=== PATIENT | male | born 1950 | race Caucasian/White ===

== ENCOUNTER 2021-03-09 01:33 | Emergency (ER) | payer OTHER ==
[~2021-03-09] VITALS: Ht 180.3 cm; Wt 90.9 kg
[2021-03-09 02:30] LABS: HEMATOCRIT 41.5 % (39.0-50.0); HEMOGLOBIN 13.9 g/dl (14.0-18.0); IMMATURE GRANULOCYTES 0.2 % (0.0-5.0); MEAN CELL VOLUME 87.2 fL CALC (80.0-100.0); MEAN CORPUSCULAR HGB 29.2 pG CALC (26.0-32.0); MEAN CORPUSCULAR HGB CONC 33.5 g/dL CAL (32.0-36.0); NEUT# 2.5 thou/uL (1.82-7.42); RED BLOOD COUNT 4.76 mill/uL (4.70-6.10); RED CELL DISTRI WIDTH 13.1 % (11.5-15.5)
[2021-03-09 02:45] LABS: ALBUMIN 4.5 g/dL (3.2-5.0); ALKALINE PHOSPHATASE 73 u/l (38-126); AMYLASE 101 u/l (30-110); ANION GAP 14 (6-22 (CALC)); BUN 18 mg/dL (8-23); BUN/CREATININE RATIO 17 (12-20 (CALC)); CARBON DIOXIDE 32 mmol/l (22-30); CHLORIDE 99 mmol/l (95-108); CREATININE 1.1 mg/dL (0.7-1.3); GFR > 60 ML/MIN (>=60 (CALC)); GFR FOR AFR.AMER. > 60 ML/MIN (>=60 (CALC)); LIPASE 214 u/l (23-300); POTASSIUM 3.3 mmol/l (3.5-5.1); SGOT/AST 21 u/l (19-48); SODIUM 142 mmol/l (137-146); TOTAL PROTEIN 7.6 g/dL (6.3-8.2)
[2021-03-09 02:57] LABS: MYOGLOBIN 56 ng/mL (0 - 121)
[2021-03-09 03:22] LABS: URINE BILIRUBIN - DIPSTICK NEGATIVE (NEGATIVE); URINE BLOOD DIPSTICK NEGATIVE (NEGATIVE); URINE COLOR YELLOW; URINE GLUCOSE - DIPSTICK NEGATIVE (NEGATIVE); URINE KETONE NEGATIVE (NEGATIVE); URINE LEUK ESTERASE NEGATIVE (NEGATIVE); URINE PROTEIN - DIPSTICK NEGATIVE (NEG-TRACE); URINE SPECIFIC GRAVITY <=1.005; URINE UROBILINOGEN - DIPSTICK 0.2 E.U./dL (0.2)
[2021-03-09 03:23] LABS: URINE NITRITE - DIPSTICK NEGATIVE (Negative)
[2021-03-09 06:14] VITALS: BP 130/77
== END 2021-03-09 06:30 | disposition home or self-care (01) | DRG 392 ==
LOC: ED 01:33
PROVIDERS: Emergency Medicine
DX: K21.9 Gastro-esophageal reflux disease without esophagitis (principal); E11.9 Type 2 diabetes mellitus without complications; I10 Essential (primary) hypertension

== ENCOUNTER 2021-05-14 04:01 | Emergency (ER) | payer OTHER ==
[~2021-05-14] VITALS: Ht 180.3 cm; Wt 90.0 kg
[2021-05-14] MEDS ORDERED: NITROGLYCE0.4 MG/SPR SL (04:17)
[2021-05-14] MEDS ORDERED: ATACAND HCT PO (04:23)
[2021-05-14] MEDS ORDERED: HALCION0.25 M1 PO (04:24)
[2021-05-14] MEDS ORDERED: LIPITOR40 M1 PO (04:24)
[2021-05-14] MEDS ORDERED: METFORMIN500 M2 PO (04:25)
[2021-05-14] MEDS ORDERED: ACIPHEX20 M1 PO (04:27)
[2021-05-14] MEDS ORDERED: NORVASC5 M1 PO (04:28)
[2021-05-14] MEDS ORDERED: METOPROL TAR25 MG PO (04:28)
[2021-05-14 04:51] LABS: HEMATOCRIT 39.1 % (39.0-50.0); HEMOGLOBIN 12.5 g/dl (14.0-18.0); IMMATURE GRANULOCYTES 0.4 % (0.0-5.0); MEAN CELL VOLUME 89.7 fL CALC (80.0-100.0); MEAN CORPUSCULAR HGB 28.7 pG CALC (26.0-32.0); NEUT# 1.68 thou/uL (1.82-7.42); RED BLOOD COUNT 4.36 mill/uL (4.70-6.10); RED CELL DISTRI WIDTH 13.6 % (11.5-15.5)
[2021-05-14 05:09] LABS: ALBUMIN 3.9 g/dL (3.2-5.0); ALKALINE PHOSPHATASE 70 u/l (38-126); AMYLASE 68 u/l (30-110); ANION GAP 11 (6-22 (CALC)); BILIRUBIN, TOTAL 0.7 mg/dL (0.0-1.4); BUN 13 mg/dL (8-23); BUN/CREATININE RATIO 13 (12-20 (CALC)); CARBON DIOXIDE 28 mmol/l (22-30); CHLORIDE 108 mmol/l (95-108); GFR > 60 ML/MIN (>=60 (CALC)); GFR FOR AFR.AMER. > 60 ML/MIN (>=60 (CALC)); LIPASE 95 u/l (23-300); POTASSIUM 3.8 mmol/l (3.5-5.1); SGOT/AST 23 u/l (19-48); SODIUM 143 mmol/l (137-146); TOTAL PROTEIN 6.7 g/dL (6.3-8.2)
[2021-05-14 05:11] LABS: D-DIMER 0.52 mg/L (0.19-0.60)
[2021-05-14 05:16] LABS: ACT PARTIAL THROMBO TIME 25.4 SECONDS (20.0-32.5); PROTHROMBIN TIME 10.3 SECONDS (9.0-12.5)
[2021-05-14 05:21] LABS: MYOGLOBIN 23 ng/mL (0 - 121)
[2021-05-14] MEDS ORDERED: LOPRESSOR 550 MG/TAB PO (06:07)
[2021-05-14 09:28] VITALS: BP 123/68
== END 2021-05-14 09:28 | disposition home or self-care (01) | DRG 311 ==
LOC: ED 04:01
PROVIDERS: Family Medicine
DX: I20.9 Angina pectoris, unspecified (principal); I10 Essential (primary) hypertension; E11.9 Type 2 diabetes mellitus without complications; Z95.5 Presence of coronary angioplasty implant and graft; Z79.84 Long term (current) use of oral hypoglycemic drugs